=== PATIENT | male | born 1985 ===

== ENCOUNTER 2021-02-18 11:58 | Emergency (ER) | payer MEDICAID, OTHER ==
[~2021-02-18] VITALS: Ht 177.8 cm; Wt 81.6 kg
[2021-02-18] MEDS ORDERED: FLUORESCEIN SOD OPTH TEST STRIP OP ONE (13:45)
[2021-02-18 13:55] VITALS: BP 153/99
[2021-02-18] MEDS ORDERED: IBUPROFEN 800 MG TAB PO ONE (14:00)
== END 2021-02-18 14:05 | disposition home or self-care (01) ==
LOC: ER 11:58
DX: S05.02XA Injury of conjunctiva and corneal abrasion without foreign body, left eye, initial encounter (principal); H10.32 Unspecified acute conjunctivitis, left eye; X58.XXXA Exposure to other specified factors, initial encounter; Y93.89 Activity, other specified; Y92.89 Other specified places as the place of occurrence of the external cause; Y99.8 Other external cause status